=== PATIENT | male | born 1955 | race Caucasian/White ===

== ENCOUNTER 2017-01-14 11:12 | Outpatient (CLI) | payer MEDICARE, MEDICAID ==
[~2017-01-14] VITALS: Ht 182.9 cm; Wt 120.5 kg
--- NOTE | ~2017-01-14 | HEMODYNAMI ---
PATIENT:ASHLEY OLMSTEAD MEDICAL RECORD: [id number] : 51 LOCATION:[facility] ADMISSION DATE: 01/14/17 Generatedon:01/14/201714:41 Patient name: ASHLEY OLMSTEAD Patient #: [id number] SSN: : 1955 Date of study: 01/14/2017 Page: Of Hemodynamic Procedure Report Patient Data Patient Demographics Procedure consent was obtained First Name: ASHLEY Gender: Male Last Name: AYSHA : 1955 [facility] Initial: TOD Age: 61 year(s) Patient #: [id number] Race: Unknown Additional ID: [id number] Contact details Address: [address] [place] [address] State: [place] City: [facility] Zip code: [address] Past Medical History Allergies: No known allergies Admission Admission Data Admission Date: 01/14/2017 Admission Time: 11:12 Procedure Procedure Types Cath Procedure Diagnostic Procedure LHC LHC w/Coronaries Miscellaneous Procedures Moderate Sedation up to 15 minutes Procedure Description Procedure Date Procedure Date: 01/14/2017 Procedure Start Time: 14:29 Procedure End Time: 14:41 Procedure Staff Name Function Charlie Moran MD Performing Physician Natalie Blevins RT Scrub Eran Marvin RN Nurse Cally Perez RT Monitor Procedure Data Cath Procedure Fluoroscopy Diagnostic fluoroscopy Total fluoroscopy Time: 1.3 time: 1.3 min min Diagnostic fluoroscopy Total fluoroscopy dose: 421 dose: 421 mGy mGy Contrast Material Contrast Material Type Amount (ml) Isovue 300 51 Entry Location Entry Primary Successful Side Size Upsize Upsize Entry Closure Succes sful Closure Location (Fr) 1 (Fr) 2 (Fr) Remarks Device Remarks Femoral Right 5 Fr Exoseal artery Estimated blood loss: 5 ml Diagnostic catheters Device Type Used For End Catheter Placement Cordis 5Fr JL 4.0 Left Coronary Catheter (MP) Angiography Cordis 5Fr 3DRC Catheter Right Coronary (MP) Angiography Cordis 5Fr Pigtail LV Angiography Catheter (MP) Procedure Complications No complications Procedure Medications Medication Administration Route Dosage 0.9% NaCl I.V. 100 ml/hr Oxygen NC 2 l/min Heparin Flush Bag added to field 2 bags (1000units/500ml NS) Lidocaine 2% added to field 20 Versed I.V. 1 mg Fentanyl I.V. 50 mcg Versed I.V. 1 mg Fentanyl I.V. 50 mcg Hemodynamics Rest Heart Rate: 64 (bpm) Pressure Samples Time Site Value (mmHg) Purpose Heart Use Rate(bpm) 14:36 LV 71/4,16 EDP 77 14:36 AO 131/78(102) Pullback 75 14:36 LV 127/13,24 Pullback 75 Gradients Valve Time Site 1 Site 2 Mean SEP/DFP Peak To Heart Use (mmHg) (sec/min) Peak Rate (mmHg) (bpm) Aortic 14:36 LV AO 0 75 127/13,24 131/78(102) Calculations Valve P-P Mean Valve Index Valve Source Name Gradient Area Flow (cm2) Aortic 0 0 Snapshots Pre Cath Intra NCS Post Cath Vital Signs Time Heart Resp SPO2 etCO2 [id number] NIBP (mmHg) Rhythm Pain Sedation Rate (ipm) (%) (mmHg) (mmHg) Status Level (bpm) 14:17:51 68 23 99 0 0 156/98(118) NSR 0 (11) 10(A) , No pain 14:22:40 72 18 98 0 0 155/93(113) NSR 0 (11) 10(A) , No pain 14:27:29 76 16 100 0 0 139/87(106) NSR 0 (11) 10(A) , No pain 14:32:15 72 17 100 0 0 131/85(107) NSR 0 (11) 10(A) , No pain 14:37:02 77 16 99 0 0 128/78(99) NSR 0 (11) 10(A) , No pain Medications Time Medication Route Dose Verified Delivered Reason Notes Effe ctiveness by by 14:17:30 0.9% NaCl I.V. 100 Eran Eran Per ml/hr Shavonne Marvin physician RN RN 14:17:43 Oxygen NC 2 Eran Eran Per l/min Shavonne Marvin physician RN RN 14:17:58 Heparin Flush added 2 Eran Eran used for Bag to bags Shavonne Marvin procedure (1000units/500ml field RN RN NS) 14:18:14 Lidocaine 2% added 20ml Eran Eran for local to vial Lorigan Lorigan anesthetic field RN RN 14:29:20 Versed I.V. 1 mg Eran Eran for Lorigan Lorigan sedation RN RN 14:29:39 Fentanyl I.V. 50 Eran Eran for mcg Lorigan Lorigan sedation RN RN 14:30:49 Versed I.V. 1 mg Eran Eran for Lorigan Lorigan sedation RN RN 14:30:58 Fentanyl I.V. 50 Eran Eran for mcg Lorigan Lorigan sedation RN image editor Log Time Note 13:52:48 Time tracking: Regular hours 13:52:52 Plan of Care:Hemodynamics will remain stable., Cardiac rhythm will remain stable., Comfort level will be maintained., Respiratory function will remain adequate., Patient/ family verbilizes understanding of procedure., Procedure tolerated without complication., Recovers from procedure without complications.. 14:00:18 Patient received from Pre/Post Procedure Room to CCL 1 Alert and oriented. Tansferred to table in Supine position. 14:01:43 Cally Counts RT(R) sent for patient. Start room use. 14:16:52 Vital chart was started 14:17:30 0.9% NaCl 100 ml/hr I.V. was administered by Eran Marvin RN; Per physician; 14:17:43 Oxygen 2 l/min NC was administered by Eran Marvin RN; Per physician; 14:17:58 Heparin Flush Bag (1000units/500ml NS) 2 bags added to field was administered by Eran Marvin RN; used for procedure; 14:18:14 Lidocaine 2% 20ml vial added to field was administered by Eran Marvin RN; for local anesthetic; 14:21:24 Warm blankets applied, and patric hugger turned on for patient comfort. 14:21:24 Correct patient and procedure confirmed by team. 14::25 Signed procedure consent form obtained from patient. 14::26 ECG and BP/O2 sat monitors applied to patient. 14::29 Rhythm: sinus rhythm 14::31 Baseline sample Acquired. 14:21:31 Full Disclosure recording started 14:21:48 H&P Date Dictated: 01/14/2017 New H&P dictated by physician.. 14:21:49 Pre-procedure instructions explained to patient. 14:21:49 Pre-op teaching completed and patient verbalized understanding. 14:21:50 Family in waiting room. 14:21:52 Patient NPO since Midnight. 14:21:58 Patient allergic to No known allergies 14:22:00 Is the patient allergic to Iodine/contrast media? No. 14:22:02 Is patient on blood thinner?No 14:22:04 Patient diabetic? Yes. 14:22:05 If diabetic: On Metformin? Yes 14:22:07 If on Metformin: Last Dose? 01/13/2017 14:22:10 Previous problem with sedation/anesthesia? No ? 14:22:11 Snore? No 14:22:13 Sleep apnea? No 14:22:14 Deviated septum? No 14:22:14 Opens mouth fully? Yes 14:22:15 Sticks out tongue? Yes 14:22:17 Airway obstruction? No ? 14:22:18 Dentures? No ? 14:22:22 Pre procedure: right dorsailis pedis pulse 2+ Normal; easily identifiable; not easily obliterated 14:22:24 Patient pain scale 0/10 ?. 14:22:29 IV patent on arrival in left hand with 0.9% NaCl at [facility]. 14:22:32 Lab results completed and on chart. 14:22:34 Right groin area was prepped with chlora-prep and draped in sterile fashion 14:22:35 Alarms reviewed by R. N. 14:22:35 Sharps counted by scrub and verified by R.N. 14:23:22 Final Timeout: patient, procedure, and site verified with staff and physician. All members of the team are in agreement. 14:23:23 Right groin site verified by team. 14:23:26 Physical assessment completed. ASA score P 2 - A patient with mild systemic disease as per Charlie Moran MD. 14:23:28 Sedation plan: IV Moderate Sedation Versed, Fentanyl 14:25:30 Zero performed for pressure channel P1 14:25:45 Use device set Femoral Dx 14:25:46 Acist Syringe opened to sterile field. 14:25:47 Bag Decanter opened to sterile field. 14:25:47 Medline Cath Pack opened to sterile field. 14:25:48 Terumo 5Fr [place] Sheath opened to sterile field. 14:25:48 St Héctor 260cm J .035 wire opened to sterile field. 14:25:49 Acist Hand Control opened to sterile field. 14:25:49 Acist Manifold opened to sterile field. 14:25:50 Diagnostic Infinity 5Fr Multipack catheter opened to sterile field. 14:25:50 Tegaderm 4 x 4 opened to sterile field. 14:29:20 Versed 1 mg I.V. was administered by Eran Marvin RN; for sedation; 14:29:35 Procedure started. 14:29:38 Local anesthetic to right femoral artery with Lidocaine 2% by Charlie Moran MD.INITIAL ACCESS ONLY 14:29:39 Fentanyl 50 mcg I.V. was administered by Eran Marvin RN; for sedation; 14:30:37 A 5 Fr sheath was inserted into the Right Femoral artery 14:30:49 Versed 1 mg I.V. was administered by Eran Marvin RN; for sedation; 14:30:58 Fentanyl 50 mcg I.V. was administered by Eran Marvin RN; for sedation; 14:31:23 A Cordis 5Fr JL 4.0 Catheter (MP) was advanced over the wire and used for Left Coronary Angiography. 14:33:01 Catheter removed. 14:33:50 A Cordis 5Fr 3DRC Catheter (MP) was advanced over the wire and used for Right Coronary Angiography. 14:34:38 Catheter removed. 14:34:44 A Cordis 5Fr Pigtail Catheter (MP) was advanced over the wire and used for LV Angiography. 14:36:21 LV gram done using YODER 14:36:22 LV hemodynamics recorded. 14:36:25 Injector settings: Ml/sec: 10, Volume: 20, 14:36:29 EF : 55 % 14:36:40 Catheter removed. 14:36:53 Cordis 5Fr Exoseal opened to sterile field. 14:37:02 Sheath removed intact; hemostasis achieved with Exoseal to the Right Femoral artery. 14:37:09 Procedure ended.(Physican Out) 14:39:05 Fluoroscopy time 01.30 minutes. 14:39:11 Fluoroscopy dose: 421 mGy 14:39:11 Flurop Dose total: 421 14:39:14 Contrast amount:Isovue 300 51ml. 14:39:15 Sharps counted by scrub and verified by MartaN. 14:39:16 Insertion/operative site no bleeding no hematoma. 14:39:18 Post-op/insertion site Right Femoral artery dressed using a 4 x 4 and Tegaderm. 14:39:26 Post right femoral artery:stable, clean and dry 14:39:28 Post Procedure Pulses reassessed and unchanged 14:39:31 Post-procedure physical assessment completed. ASA score P 2 - A patient with mild systemic disease as per Charlie Moran MD. 14:39:33 Post procedure rhythm: unchanged. 14:39:35 Estimated blood loss: 5 ml 14:39:37 Post procedure instruction explained to patient.Patient verbalizes understanding. 14:39:38 Patient needs reinforcement of post procedure teaching. 14:39:51 Procedure type changed to Cath procedure, Diagnostic procedure, LHC, LHC w/Coronaries, Miscellaneous Procedures, Moderate Sedation up to 15 minutes 14:39:55 Procedure Complication : No complications 14:39:58 See physician's report for complete and final results. 14:40:14 Procedure and supply charges have been captured, reviewed, submitted and are correct. 14:41:07 Vital chart was stopped 14:41:10 Report given to Pre/Post Procedure Room. 14:41:16 Patient transfered to Pre/Post Procedure Room with Stretcher. 14:41:23 Procedure ended. 14:41:23 Full Disclosure recording stopped 14:41:26 End room use (Document Last) Device Usage Item Name Manufacture Quantity Catalog Hospital Part Current Minimal Lo t# / Number Charge Number Stock Stock Serial# Code Acist Acist 1 [id number] [id number] 833984 [id number] 20 Syringe [employer] Bag Microtek 1 2002S 546460 20853 803358 5 Decanter [employer] Medline Cardinal 1 [id number] 180419 49401 318084 5 Cath Pack Health Terumo 5Fr Terumo 1 [id number] 628755 100849 658320 [address] [facility] [facility] 1 486519 650082 595846 765950 30 260cm J .035 wire Acist Hand Acist 1 56211 257999 736423 036825 5 Control [employer] Inc Acist Acist 1 79589 247159 581684 199586 5 Manifold [employer] Inc Diagnostic Cardinal 1 [id number] 530891 35515 321279 30 [facility] 5Fr Multipack catheter Tegaderm 4 3M 1 1626W 776762 100032 030188 5 x 4 Cordis 5Fr Cardinal 1 555492 5 JL 4.0 Health Catheter (MP) Cordis 5Fr Cardinal 1 367281 5 3DRC Health Catheter (MP) Cordis 5Fr Cardinal 1 964298 5 Pigtail Health Catheter (MP) Cordis 5Fr Cardinal 1 EX500 310262 84[address] 8[address] [facility] Signature Audit [place] Stage Time Signature Unsigned Intra-Procedure 01/14/2017 Cally 2:41:35 PM Counts RT(R) Signatures Monitor : Cally Signature : Counts RT Date : Time : [address] [address]
[~2017-01-14 11:12] MED LIST: ABILIFY10 MG PO; ACTOS30 MG PO; ATIVAN1 MG PO; BACLOFEN10 MG PO; COMBIVENT RESPIM4 GM INH; EFFEXOR XR75 MG PO; FENOFIBRATE PO; GLUCOPHAGE500 MG PO; LISINOPRIL2.5 MG PO; LYRICA150 MG PO; METOPROLOL TART50 MG PO; NORVASC5 MG PO; PROZAC40 MG PO; RESTORIL15 MG PO; TRULICITY1.5 MG/0.5 SC; WELLBUTRIN SR150 MG
[2017-01-14 12:14] VITALS: BP 127/76; Ht 182.9 cm; Wt 120.5 kg
[2017-01-14 12:34] LABS: ANION GAP 4.8 mmol/L (8-16); CALCIUM 9.8 mg/dL (8.5-10.1); CARBON DIOXIDE 35.2 mmol/L (21.0-32.0); CREATININE - SERUM 1.1 mg/dL (0.6-1.3)
[2017-01-14 12:45] LABS: HEMATOCRIT 46.6 % (42.0-54.0); HEMOGLOBIN 15.9 g/dL (13.5-17.5); MCH 30.6 pg (26.0-34.0); MCHC 34.1 g/dL (31.0-37.0); MCV 89.8 fL (80.0-100.0); PLATELET COUNT 219 10x3/uL (130-400); RBC 5.19 10x6/uL (4.20-6.10); RDW 13.3 % (11.5-14.5)
[2017-01-14 13:04] LABS: EOSINOPHILS 6 % (0-7); LYMPHOCYTES 49 % (15-50); MONOCYTES 8 % (2-11); NEUTROPHILS 34 % (40-80); PLATELET ESTIMATE NORMAL
--- NOTE | 2017-01-14 15:10 | NUR ---
2L NC, NO RESP DISTRESS. RIGHT GROIN 5F EXOSEAL CDI, NO BLEEDING OR HEMATOMA NOTED. NO C/O PAIN OR NAUSEA. VSS. WILL CONTINUE TO MONITOR.
--- NOTE | 2017-01-14 16:23 | NUR ---
HOB ELEVATED 30 DEGREES. RIGHT GROIN 5F EXOSEAL CDI, NO BLEEDING NOTED.
--- NOTE | 2017-01-14 16:46 | NUR ---
LEFT HAND PIV D/C'D WITH CATHETER INTACT, BAND AID TO SITE. UP TO BEDSIDE TO GET DRESSED.
--- NOTE | 2017-01-14 16:57 | NUR ---
DISCHARGE INSTRUCTIONS GIVEN, VERBALIZED UNDERSTANDING. TAKEN OUT VIA WHEELCHAIR BY CATH TALENT PROGRAM MANAGER. LEFT FACILITY WITH FAMILY MEMBER AND ALL PERSONAL BELONGINGS.
--- NOTE | 2017-01-17 11:31 | OP ---
PATIENT NAME: ASHLEY OLMSTEAD MEDICAL RECORD: [id number] :51 LOCATION:D.CAT ADMISSION DATE: SURGEON: ASH TODD MD DATE OF OPERATION: 01/14/2017 PROCEDURES: Left heart catheterization, selective coronary angiography, right femoral approach. CATHETERS: A 5-Tunisian sheath, 5/4 left and right Abdi, 5/4 pig. The procedure was well tolerated. The patient was returned to the saavedra and sheath was removed. ExoSeal device was placed. FINDINGS: Left ventriculography in 30-degree YODER view: Normal wall motion. Normal systolic function. CORONARY ANATOMY. LEFT MAIN: Left main is free of disease. LAD: Free of disease in the diagonal system. CIRCUMFLEX: Free disease in the marginal system. RIGHT CORONARY ARTERY: Dominant artery, gives rise to PDA, free of disease. IMPRESSION: Normal systolic function. Normal coronary anatomy. TRANSINT:[id number] Voice Confirmation ID: [id number] DOCUMENT ID: [id number] ASH TODD MD at 1131 CC: [id number] DICTATION DATE: 01/14/17 1445 DEMI CHEF: 01/14/17 1754 DEP CLI 01/14/17 [facility] [address] [place] [address]
--- NOTE | 2017-01-17 11:31 | HP ---
PATIENT: ASHLEY OLMSTEAD MEDICAL RECORD: [id number] ACCOUNT: [id number] LOCATION:ANSELMO : 51 ADMISSION DATE: 01/14/17 HISTORY AND PHYSICAL EXAMINATION HISTORY: A 61-year-old gentleman with history of cerebrovascular disease, status post CVA, with history of hypertension, dyslipidemia, and diabetes mellitus, who was seen in the office with symptomatology consistent with angina. Cardiolite stress testing showed reversible ischemia in the inferior segments. LV function was normal at that time. PAST MEDICAL HISTORY: Includes; 1. History of hypertension. 2. Hyperlipidemia. 3. Diabetes mellitus. PHYSICAL EXAMINATION: GENERAL: Pleasant gentleman, in no acute distress. HEENT: Normocephalic and atraumatic. NECK: No JVD or bruit. HEART: Regular. LUNGS: Lung ernst are clear. ABDOMEN: Soft and nontender. EXTREMITIES: Pulses 2+. No edema. IMPRESSION: Angina symptomatology with positive noninvasive testing. PLAN: Plan is for diagnostic angiography and intervention based on above. TRANSINT:[id number] Voice Confirmation ID: [id number] DOCUMENT ID: [id number] ASH TODD MD at 1131 CC: [id number] DICTATION DATE: 01/14/17 1427 DOCTOR OF NAPRAPATHY: 01/14/17 1448 [facility] CLI 01/14/[address] [address]
== END 2017-01-14 16:58 | disposition home or self-care (01) ==
LOC: D.CATH 11:12
PROVIDERS: Internal Medicine Interventional Cardiology
DX: I20.9 Angina pectoris, unspecified (principal); E11.9 Type 2 diabetes mellitus without complications; R94.30 Abnormal result of cardiovascular function study, unspecified; E78.5 Hyperlipidemia, unspecified; I67.9 Cerebrovascular disease, unspecified; R07.9 Chest pain, unspecified; Z01.812 Encounter for preprocedural laboratory examination